=== PATIENT | male | born 1945 | race Caucasian/White ===

== ENCOUNTER 2019-12-31 15:57 | Inpatient (IN) | payer MEDICARE, OTHER ==
[~2019-12-31] VITALS: Ht 152.4 cm; Wt 58.1 kg
[~2019-12-31 15:57] MED LIST: AMLO5TAB4 PO; BACI28.433 TP; BENA20TA9 PO; CITA20TA19 PO; GENT3.5O4 EACHEYE; GLIP10TA11 PO; HYDR30CR77; INSU100I5 SQ; INSU100V30 IJ; METF850T PO; OLOP2.5D12 OP; OMEP20TA20 PO; RISP1TAB7 PO; SENN-175 PO; SITA100T PO; TEMA30CA5 PO; TRAM50TA2 PO; TRIA63AE TP
--- NOTE | 2019-12-31 17:22 | NUR ---
GPS /RN-NOTES DR. TALAMANTES ( PSYCHIATRIST) MADE AWARE OF PATIENT ADMISSION WITH T.O ORDERS TO CONTINUE ALL MEDICATIONS FROM [facility] INCLUDING ATIVAN 1MG P.O Q4HRS. PRN. NOTED AND CARRIED OUT. DR. QUESADA ALSO MADE AWARE WITH T.O ORDER TO CONTINUE ALL MEDICATIONS FROM [facility] AND STATED THAT HE WILL COME AND SEE THE PATIENT TONIGHT.
[2019-12-31] MEDS ORDERED: MAG HYDROX/AL HYDROX/SIMETH 30 ML UDC PO PRN (17:30)
[2019-12-31] MEDS ORDERED: LORAZEPAM 0.5 MG TABLET PO PRN (17:30)
[2019-12-31] MEDS ORDERED: DEXTROSE 50%-WATER 50 ML DISP.SYRIN IV PRN (17:30)
[2019-12-31] MEDS ORDERED: TEMAZEPAM 7.5 MG CAPSULE PO PRN (17:30)
[2019-12-31] MEDS ORDERED: BLOOD SUGAR DIAGNOSTIC 1 EACH STRIP IN ONE (17:30)
[2019-12-31] MEDS ORDERED: ACETAMINOPHEN 325 MG TABLET PO PRN (17:30)
[2019-12-31] MEDS ORDERED: MAGNESIUM HYDROXIDE 30 ML UDC PO PRN (17:30)
[2019-12-31] MEDS: INSULIN REGULAR, HUMAN 100 UNIT/ML 3 ML VIAL SQ PRN (18:23)
[2019-12-31] MEDS: BLOOD SUGAR DIAGNOSTIC 1 EACH STRIP VI SCH ×2 (18:24→21:48)
--- NOTE | 2019-12-31 19:29 | NUR ---
GPS/RN-NOTES ADMITTED 74 Y.O FRISIAN MALE PATIENT FROM [facility]. PATIENT ON 14 DAY HOLD FOR GD ADULT. UPON FACE TO FACE ASSESSMENT PATIENT ALERT ORIENTED X3 ,CALM AND COOPERATIVE ANSWER ALL QUESTIONS. HOLD WAS REVIEWED WITH THE PATIENT, PATIENT'S RIGHT WAS REVIEWED AND GIVEN TO HIM. CONTRABAND AND FULL BODY ASSESSMENT DONE. DR. TALAMANTES( PSYCHIATRIST) MADE AWARE WITH ORDERS ALSO DR. QUESADA ( STAFF REGISTERED NURSE ) AWARE AND STATED HE WILL COME SEE THE PATIENT TONIGHT. PATIENT WAS ORIENTED IN THE UNIT AND UNIT POLICIES. CALLED AZEEM SMART AT [phone] AND LEFT A VOICE MSG. PATIENT AMBULATORY USING WALKER.PATIENT WAS COOPERATIVE DURING ADMISSION PROCESS. WILL ENDORSE TO INCOMING SHIFT FOR ADMISSION PROCESS AND CONTINUITY OF CARE .
[2019-12-31 20:15] VITALS: BP 140/76
[2019-12-31] MEDS ORDERED: TRAMADOL HCL 50 MG TABLET PO PRN (20:30)
[2019-12-31] MEDS: *INSULIN REGULAR(HUMULIN R)HUM 100 UNIT/ML VIAL SQ PRN (21:52)
[2019-12-31] MEDS: SIMVASTATIN 10 MG TABLET PO SCH (21:55)
[2019-12-31] MEDS ORDERED: risperiDONE 1 MG TABLET PO SCH (22:00)
[2019-12-31] MEDS ORDERED: CITALOPRAM HYDROBROMIDE 20 MG TABLET PO SCH (22:00)
[2020-01-01 06:46] LABS: BASOPHILS % (AUTO) 0.5 % (0.0-2.0); EOSINOPHILS % (AUTO) 3.6 % (0.0-6.0); HEMATOCRIT 32 % (39-51); LYMPHOCYTES # (AUTO) 1.3 /CMM (0.8-4.8); LYMPHOCYTES % (AUTO) 21.4 % (20.0-44.0); MEAN CORPUSCULAR HGB CONC 31 g/dl (31.0-36.0); MEAN CORPUSCULAR VOLUME 69 fL (80-96); MONOCYTES # (AUTO) 0.4 /CMM (0.1-1.30); MONOCYTES % (AUTO) 6.2 % (2.0-12.0); NEUTROPHILS # (AUTO) 4.3 /CMM (1.8-8.9); NEUTROPHILS % (AUTO) 68.3 % (43.0-81.0); PLATELET COUNT (AUTO) 394 /CMM (150-450); RED BLOOD CELL COUNT(AUTO) 4.67 MIL/uL (4.5-6.0); WHITE BLOOD COUNT (AUTO) 6.3 K/uL (4.3-11.0)
[2020-01-01 07:01] LABS: ALBUMIN 3.2 g/dL (3.4-5.0); BILIRUBIN,TOTAL 0.3 mg/dL (0.2-1.0); CREATININE 0.8 mg/dL (0.6-1.3); POTASSIUM 4.4 mmol/L (3.5-5.1); TOTAL PROTEIN, SERUM 7.5 g/dL (6.4-8.2)
[2020-01-01 07:22] LABS: C-REACTIVE PROTEIN 0.2 mg/dL (0.0-0.9); FREE PSA 1.08 ng/mL (0.00-45); PROSTATE SPECIFIC ANTIGEN SCR 9.2 ng/mL (0.00-4.00)
[2020-01-01] MEDS ORDERED: GABA-534 PO (07:35)
[2020-01-01] MEDS ORDERED: [UNRECOGNIZED DRUG - CODE] PO (07:35)
[2020-01-01] MEDS ORDERED: HC A30CR11 RC (07:35)
[2020-01-01] MEDS ORDERED: RISP3TAB14 PO (07:35)
[2020-01-01] MEDS ORDERED: HYDR28.32 TP (07:35)
[2020-01-01] MEDS ORDERED: DOCU-141 PO (07:35)
[2020-01-01] MEDS ORDERED: DICY10CA37 PO (07:35)
[2020-01-01] MEDS ORDERED: HYDR30CR79 RC (07:35)
[2020-01-01] MEDS ORDERED: METF-835 PO (07:36)
[2020-01-01] MEDS: INSULIN REGULAR, HUMAN 100 UNIT/ML 3 ML VIAL SQ PRN ×2 (07:39→11:46)
[2020-01-01] MEDS: BLOOD SUGAR DIAGNOSTIC 1 EACH STRIP VI SCH ×4 (07:41→21:53)
[2020-01-01 08:00] VITALS: BP 111/61
[2020-01-01] MEDS: GABAPENTIN 300 MG CAPSULE PO SCH ×2 (08:49→16:56)
[2020-01-01] MEDS: METFORMIN 500 MG TABLET PO SCH ×2 (08:49→16:56)
[2020-01-01] MEDS: DOCUSATE SODIUM 100 MG CAPSULE PO SCH ×2 (08:49→16:56)
[2020-01-01] MEDS: BENAZEPRIL HCL 10 MG TABLET PO SCH (08:49)
[2020-01-01] MEDS: glipiZIDE 10 MG TABLET PO SCH ×2 (08:49→16:56)
[2020-01-01] MEDS: PANTOPRAZOLE 40 MG TABLET.DR PO SCH (08:50)
[2020-01-01] MEDS: LINAGLIPTIN 5 MG TABLET PO SCH (08:50)
[2020-01-01] MEDS: AMLODIPINE BESYLATE 2.5 MG TABLET PO SCH ×2 (08:50→16:53)
--- NOTE | 2020-01-01 09:26 | NUR ---
Family Contact: SW called the pts daughter, Mira ([phone]), and left a voicemail stating that the SW would like to speak to her regarding the pts treatment plan and initial discharge plan.
--- NOTE | 2020-01-01 09:27 | NUR ---
Facility Contact: SW called [facility] ([phone]) and spoke to Minda who stated that the pt can be discharged back to their facility once he is discharged from the hospital.
--- NOTE | 2020-01-01 10:39 | NUR ---
Initial Discharge Plan: Pt currently resides at [facility] located at [address] [place] [address], [address], [place] [address]; ([phone]). Per pt, he would like to return to his home. SW will work with the pt and the MD regarding appropriate discharge planning. SW will form a safe and proper discharge.
[2020-01-01] MEDS: risperiDONE 1 MG TABLET PO SCH ×2 (13:48→21:48)
[2020-01-01 16:00] VITALS: BP 100/62
--- NOTE | 2020-01-01 17:15 | NUR ---
gps plastics engineering teacher: notes bs check=59, re check=65. no s/s of hypo/hyperglycemia reactions noted. orange juice given. dinner served.
--- NOTE | 2020-01-01 18:00 | NUR ---
gps it operations manager: md visit seen and examined by dr. petersen.
[2020-01-01 20:00] VITALS: BP 123/71
--- NOTE | 2020-01-01 20:55 | NUR ---
GPS OPENING NOTES: PATIENT AWAKE, ALERT AN ORIENTED X 2-3, CALM, COOPERATIVE, PACING, DENIES SI/HI, DENIES AH/VH, NO SOB, NO ACUTE DISTRESS, BREATHING EVEN AND UNLABORED, NO S/S OF PAIN AND DISCOMFORT, WILL CONTINUE TO MONITOR Q15 MINS FOR SAFETY
[2020-01-01] MEDS: SIMVASTATIN 10 MG TABLET PO SCH (21:49)
[2020-01-01] MEDS: *INSULIN REGULAR(HUMULIN R)HUM 100 UNIT/ML VIAL SQ PRN (22:00)
[2020-01-02] MEDS: TEMAZEPAM 7.5 MG CAPSULE PO PRN ×2 (02:20→22:23)
[2020-01-02] MEDS ORDERED: glipiZIDE 10 MG TABLET PO SCH (07:30)
[2020-01-02 08:00] VITALS: BP 119/68
[2020-01-02] MEDS: BLOOD SUGAR DIAGNOSTIC 1 EACH STRIP VI SCH ×4 (08:34→21:23)
[2020-01-02] MEDS: BENAZEPRIL HCL 10 MG TABLET PO SCH (09:00)
[2020-01-02] MEDS: AMLODIPINE BESYLATE 2.5 MG TABLET PO SCH ×2 (09:00→17:00)
[2020-01-02] MEDS: INSULIN REGULAR, HUMAN 100 UNIT/ML 3 ML VIAL SQ PRN ×2 (09:36→11:56)
[2020-01-02] MEDS: PANTOPRAZOLE 40 MG TABLET.DR PO SCH (09:44)
[2020-01-02] MEDS: DOCUSATE SODIUM 100 MG CAPSULE PO SCH ×2 (09:44→17:32)
[2020-01-02] MEDS: risperiDONE 1 MG TABLET PO SCH ×2 (09:45→21:23)
[2020-01-02] MEDS: METFORMIN 500 MG TABLET PO SCH ×2 (09:45→17:00)
[2020-01-02] MEDS: GABAPENTIN 300 MG CAPSULE PO SCH ×2 (09:45→17:33)
[2020-01-02] MEDS: LINAGLIPTIN 5 MG TABLET PO SCH (11:53)
[2020-01-02 16:00] VITALS: BP 118/70
--- NOTE | 2020-01-02 16:20 | NUR ---
UA SENT PER ORDERS.
--- NOTE | 2020-01-02 16:50 | NUR ---
RN CHECKING BGL AND FIND SUGAR IS 45.PT. AWAKE AND ALERT,SLIGHTLY SLUGGISH.IMMEDIATELY GIVEN 4 OZ ORANGE JUICE WITH 3 PKTS. SUGAR.PT. IN DINING RM.BEING MONITORED CLOSELY.
--- NOTE | 2020-01-02 17:23 | NUR ---
RECHECK OF BLOOD SUGAR AND NOW 14O. PT. EATING DINNER.SEEMS MORE ALERT.CALL OUT TO DR. Ofelia QUESADA WITH FINDINGS.
--- NOTE | 2020-01-02 17:29 | NUR ---
RETURN CALL FROM DR. QUESADA WITH ORDERS TO DC GLUCOTROL.SPEECH LANGUAGE THERAPIST AWARE OF ALL INFO AND PT. STATUS.REVIEW OF ALL HYPOGLYCEMICS WITH DR. QUESADA.
[2020-01-02] MEDS: FERROUS SULFATE (325 MG) 325 MG/TAB TABLET PO SCH (17:33)
[2020-01-02 17:36] LABS: APPEARANCE,URINE CLEAR (CLEAR); BILIRUBIN,URINE NEGATIVE (NEGATIVE); BLOOD, URINE NEGATIVE Ery/uL (NEGATIVE); COLOR,URINE YELLOW (YELLOW); KETONES,URINE NEGATIVE (NEGATIVE); LEUKOCYTE ESTERASE ,URINE NEGATIVE (NEGATIVE); NITRITE, URINE NEGATIVE (NEGATIVE); PROTEIN,URINE NEGATIVE (NEGATIVE); UGLUCOSE 100 MG/DL mg/dL (NEGATIVE); UROBILINOGEN,URINE 0.2 EU/dL (0.2)
[2020-01-02 20:10] VITALS: BP 135/78
[2020-01-02] MEDS: SIMVASTATIN 10 MG TABLET PO SCH (21:23)
[2020-01-02] MEDS: *INSULIN REGULAR(HUMULIN R)HUM 100 UNIT/ML VIAL SQ PRN (21:25)
[2020-01-03] MEDS: BLOOD SUGAR DIAGNOSTIC 1 EACH STRIP VI SCH ×4 (07:18→21:49)
[2020-01-03 08:00] VITALS: BP 159/78
[2020-01-03] MEDS: INSULIN REGULAR, HUMAN 100 UNIT/ML 3 ML VIAL SQ PRN ×2 (08:02→11:19)
[2020-01-03] MEDS: LINAGLIPTIN 5 MG TABLET PO SCH (08:21)
[2020-01-03] MEDS: FERROUS SULFATE (325 MG) 325 MG/TAB TABLET PO SCH ×2 (08:21→16:12)
[2020-01-03] MEDS: GABAPENTIN 300 MG CAPSULE PO SCH ×2 (08:21→16:12)
[2020-01-03] MEDS: PANTOPRAZOLE 40 MG TABLET.DR PO SCH (08:21)
[2020-01-03] MEDS: METFORMIN 500 MG TABLET PO SCH ×2 (08:22→16:12)
[2020-01-03] MEDS: risperiDONE 1 MG TABLET PO SCH ×2 (08:22→21:49)
[2020-01-03] MEDS: DOCUSATE SODIUM 100 MG CAPSULE PO SCH ×2 (08:22→16:12)
[2020-01-03] MEDS: AMLODIPINE BESYLATE 2.5 MG TABLET PO SCH ×2 (08:23→16:12)
[2020-01-03] MEDS: BENAZEPRIL HCL 10 MG TABLET PO SCH (08:24)
[2020-01-03 08:43] LABS: OCCULT BLOOD STOOL NEGATIVE (NEGATIVE)
--- NOTE | 2020-01-03 09:45 | NUR ---
GPS RN NOTE: PATIENT AWAKE, AMBULATORY WITH WALKER ALERT AN ORIENTED X 2-3, CALM, COOPERATIVE, PACING, DENIES SI/HI, DENIES AH/VH, NO SOB, NO ACUTE DISTRESS, BREATHING EVEN AND UNLABORED, NO S/S OF PAIN AND DISCOMFORT, WILL CONTINUE TO MONITOR Q15 MINS FOR SAFETY
[2020-01-03 16:00] VITALS: BP 133/59
[2020-01-03] MEDS: glipiZIDE 5 MG TABLET PO SCH (16:35)
[2020-01-03 20:28] VITALS: BP 111/60
[2020-01-03] MEDS: TEMAZEPAM 7.5 MG CAPSULE PO PRN (21:49)
[2020-01-03] MEDS: SIMVASTATIN 10 MG TABLET PO SCH (21:49)
[2020-01-03] MEDS: *INSULIN REGULAR(HUMULIN R)HUM 100 UNIT/ML VIAL SQ PRN (21:53)
[2020-01-04] MEDS: BLOOD SUGAR DIAGNOSTIC 1 EACH STRIP VI SCH ×4 (07:26→21:16)
[2020-01-04] MEDS: INSULIN REGULAR, HUMAN 100 UNIT/ML 3 ML VIAL SQ PRN ×2 (07:27→12:01)
[2020-01-04 08:00] VITALS: BP 152/83
[2020-01-04] MEDS: risperiDONE 1 MG TABLET PO SCH ×2 (08:22→21:16)
[2020-01-04] MEDS: DOCUSATE SODIUM 100 MG CAPSULE PO SCH ×2 (08:22→17:00)
[2020-01-04] MEDS: FERROUS SULFATE (325 MG) 325 MG/TAB TABLET PO SCH ×2 (08:22→17:00)
[2020-01-04] MEDS: glipiZIDE 5 MG TABLET PO SCH ×2 (08:22→17:00)
[2020-01-04] MEDS: LINAGLIPTIN 5 MG TABLET PO SCH (08:22)
[2020-01-04] MEDS: GABAPENTIN 300 MG CAPSULE PO SCH ×2 (08:22→17:00)
[2020-01-04] MEDS: BENAZEPRIL HCL 10 MG TABLET PO SCH (08:22)
[2020-01-04] MEDS: AMLODIPINE BESYLATE 2.5 MG TABLET PO SCH ×2 (08:23→17:00)
[2020-01-04] MEDS: PANTOPRAZOLE 40 MG TABLET.DR PO SCH (08:23)
[2020-01-04] MEDS: METFORMIN 500 MG TABLET PO SCH ×2 (09:31→17:00)
--- NOTE | 2020-01-04 10:53 | NUR ---
Probable Cause (PC) Hearing: SW called the pts daughter, Mira ([phone]), and left a voicemail stating that the pt will be having a hearing and explained what that entails.
--- NOTE | 2020-01-04 15:02 | NUR ---
SNF Referral: SW faxed a referral to [facility] [place] with attn to Roseline to the fax number: [phone].
[2020-01-04 16:00] VITALS: BP 139/64
--- NOTE | 2020-01-04 19:25 | NUR ---
RN OPENING NOTES: RECEIVED PT IN BED AND IS ASLEEP AT THIS TIME. WALKER NOTED AT BEDSIDE. BED KEPT IN LOW, LOCKED POSITION, AND SIDE RAILS X2UP. BED ALARM ACTIVATED WELL. NO SOB NOTED. NO S/S OF DISTRESS.
[2020-01-04 20:11] VITALS: BP 169/79
[2020-01-04] MEDS: *INSULIN REGULAR(HUMULIN R)HUM 100 UNIT/ML VIAL SQ PRN (21:14)
--- NOTE | 2020-01-04 21:15 | NUR ---
RN NOTES: BLOOD SUGAR THIS PM WAS 241. 4 UNITS OF INSULIN WAS ADMINISTERED. SNACK PROVIDED. PT ALSO REQUESTING FOR PILL TO SLEEP. WILL CONTINUE TO MONITOR.
[2020-01-04] MEDS: SIMVASTATIN 10 MG TABLET PO SCH (21:16)
[2020-01-04] MEDS: TEMAZEPAM 7.5 MG CAPSULE PO PRN (21:27)
--- NOTE | 2020-01-04 21:28 | NUR ---
RN NOTES: PT REQUESTED "SOMETHING FOR SLEEP." PT GIVEN RESTORIL 15MG PO ORDERED. WILL CONTINUE TO MONITOR. PT IN BED.
[2020-01-05 03:14] VITALS: BP 147/73
--- NOTE | 2020-01-05 07:19 | NUR ---
RN CLOSING NOTES: ENDORSED TO AM NURSE FOR FAM. PT SITTING DOWN WITH WALKER NEAR TELEPHONE IN THE BACK. NO SOB NOTED. NO S/S OF DISTRESS.
[2020-01-05] MEDS: BLOOD SUGAR DIAGNOSTIC 1 EACH STRIP VI SCH ×4 (07:25→21:01)
[2020-01-05] MEDS: INSULIN REGULAR, HUMAN 100 UNIT/ML 3 ML VIAL SQ PRN ×2 (07:31→12:06)
[2020-01-05] MEDS: PANTOPRAZOLE 40 MG TABLET.DR PO SCH (07:53)
[2020-01-05] MEDS: glipiZIDE 5 MG TABLET PO SCH ×2 (07:53→17:16)
[2020-01-05 08:00] VITALS: BP 150/70
[2020-01-05] MEDS: METFORMIN 500 MG TABLET PO SCH ×2 (08:00→17:19)
[2020-01-05] MEDS: GABAPENTIN 300 MG CAPSULE PO SCH ×2 (08:00→17:16)
[2020-01-05] MEDS: risperiDONE 1 MG TABLET PO SCH ×2 (08:00→21:02)
[2020-01-05] MEDS: BENAZEPRIL HCL 10 MG TABLET PO SCH (08:01)
[2020-01-05] MEDS: FERROUS SULFATE (325 MG) 325 MG/TAB TABLET PO SCH ×2 (08:02→17:17)
[2020-01-05] MEDS: DOCUSATE SODIUM 100 MG CAPSULE PO SCH ×2 (08:02→17:16)
[2020-01-05] MEDS: LINAGLIPTIN 5 MG TABLET PO SCH (08:02)
[2020-01-05] MEDS: AMLODIPINE BESYLATE 2.5 MG TABLET PO SCH ×2 (08:02→17:17)
[2020-01-05 16:00] VITALS: BP 124/65
--- NOTE | 2020-01-05 16:08 | NUR ---
Group Note: SW encouraged pt to attend group therapy on 01/05/20 at 2pm discussing reality testing regarding their admission. Pt was asleep in his room and stated that he did not want to participate or talk to anyone at this time.
--- NOTE | 2020-01-05 17:15 | NUR ---
RN NOTE: ACCUCHECK 134. NO INSULIN COVERAGE.
[2020-01-05 20:20] VITALS: BP 127/73
[2020-01-05] MEDS: SIMVASTATIN 10 MG TABLET PO SCH (21:02)
[2020-01-05] MEDS: *INSULIN REGULAR(HUMULIN R)HUM 100 UNIT/ML VIAL SQ PRN (21:10)
--- NOTE | 2020-01-05 21:24 | NUR ---
RN NOTES HS ACCUCHECK BG 173. ADMINISTERED 3UN OF INSULIN PER SLIDING SCALE. PROVIDED OJ AT BEDSIDE.
[2020-01-05] MEDS: TEMAZEPAM 7.5 MG CAPSULE PO PRN (21:45)
[2020-01-05 22:00] VITALS: BP 127/73
[2020-01-06] MEDS: PANTOPRAZOLE 40 MG TABLET.DR PO SCH (06:50)
[2020-01-06 07:43] LABS: BASOPHILS % (AUTO) 0.6 % (0.0-2.0); EOSINOPHILS % (AUTO) 4.3 % (0.0-6.0); HEMATOCRIT 33 % (39-51); HEMOGLOBIN 10.3 g/dL (13.5-17.5); LYMPHOCYTES # (AUTO) 2.3 /CMM (0.8-4.8); LYMPHOCYTES % (AUTO) 26.4 % (20.0-44.0); MEAN CORPUSCULAR HGB CONC 31 g/dl (31.0-36.0); MEAN CORPUSCULAR VOLUME 69 fL (80-96); MONOCYTES # (AUTO) 0.6 /CMM (0.1-1.30); MONOCYTES % (AUTO) 6.5 % (2.0-12.0); NEUTROPHILS # (AUTO) 5.4 /CMM (1.8-8.9); NEUTROPHILS % (AUTO) 62.2 % (43.0-81.0); PLATELET COUNT (AUTO) 396 /CMM (150-450); RED BLOOD CELL COUNT(AUTO) 4.78 MIL/uL (4.5-6.0); WHITE BLOOD COUNT (AUTO) 8.7 K/uL (4.3-11.0)
[2020-01-06 07:59] LABS: CALCIUM, SERUM 9.1 mg/dL (8.5-10.1); CREATININE 0.7 mg/dL (0.6-1.3); POTASSIUM 4.6 mmol/L (3.5-5.1)
[2020-01-06 08:00] VITALS: BP 148/61
[2020-01-06] MEDS: BLOOD SUGAR DIAGNOSTIC 1 EACH STRIP VI SCH ×4 (08:06→21:18)
[2020-01-06] MEDS: LINAGLIPTIN 5 MG TABLET PO SCH (08:07)
[2020-01-06] MEDS: glipiZIDE 5 MG TABLET PO SCH ×2 (08:07→16:31)
[2020-01-06] MEDS: GABAPENTIN 300 MG CAPSULE PO SCH ×2 (08:07→16:31)
[2020-01-06] MEDS: METFORMIN 500 MG TABLET PO SCH ×2 (08:08→16:31)
[2020-01-06] MEDS: BENAZEPRIL HCL 10 MG TABLET PO SCH (08:08)
[2020-01-06] MEDS: AMLODIPINE BESYLATE 2.5 MG TABLET PO SCH ×2 (08:08→16:31)
[2020-01-06] MEDS: DOCUSATE SODIUM 100 MG CAPSULE PO SCH ×2 (08:08→16:30)
[2020-01-06] MEDS: risperiDONE 1 MG TABLET PO SCH ×2 (08:08→21:14)
[2020-01-06] MEDS: FERROUS SULFATE (325 MG) 325 MG/TAB TABLET PO SCH ×2 (08:08→16:31)
[2020-01-06] MEDS: INSULIN REGULAR, HUMAN 100 UNIT/ML 3 ML VIAL SQ PRN ×3 (08:10→16:38)
--- NOTE | 2020-01-06 11:42 | NUR ---
Family Contact: SW called the pts daughter, Mira ([phone]), and left a voicemail stating that the pt will be discharged to [facility] [place] tomorrow.
--- NOTE | 2020-01-06 15:11 | NUR ---
Group Note: SW encouraged pt to attend group therapy on 01/06/20 at 2pm discussing discharge planning. Pt was present in the activities room and stated that he is going to be discharged the following day to [facility] and that he was excited about going back home soon. Pt then became distracted by the other patients and was unable to focus on the SW.
[2020-01-06 16:00] VITALS: BP 101/57
[2020-01-06 20:00] VITALS: BP 131/73
[2020-01-06] MEDS: SIMVASTATIN 10 MG TABLET PO SCH (21:14)
[2020-01-06] MEDS: *INSULIN REGULAR(HUMULIN R)HUM 100 UNIT/ML VIAL SQ PRN (22:22)
[2020-01-06] MEDS: TEMAZEPAM 7.5 MG CAPSULE PO PRN (23:23)
--- NOTE | 2020-01-06 23:26 | NUR ---
GPS RN NOTES: C/O OF INSOMNIA PT C/O UNABLE TO SLEEP. PT STATED, " NO SLEEP. PILL PLEASE." OFFERED RESTORIL 15 MG PO PRN ORDERED. PT AGREED AND TOLERATED MEDICATION WELL. CONTINUE TO MONITOR.
[2020-01-07] MEDS ORDERED: glipiZIDE 5 MG TABLET PO SCH (07:30)
[2020-01-07] MEDS: BLOOD SUGAR DIAGNOSTIC 1 EACH STRIP VI SCH ×2 (07:40→11:56)
[2020-01-07] MEDS: PANTOPRAZOLE 40 MG TABLET.DR PO SCH (07:56)
[2020-01-07 08:00] VITALS: BP 143/69
[2020-01-07] MEDS: DOCUSATE SODIUM 100 MG CAPSULE PO SCH (08:09)
[2020-01-07] MEDS: GABAPENTIN 300 MG CAPSULE PO SCH (08:09)
[2020-01-07] MEDS: FERROUS SULFATE (325 MG) 325 MG/TAB TABLET PO SCH (08:09)
[2020-01-07] MEDS: LINAGLIPTIN 5 MG TABLET PO SCH (08:09)
[2020-01-07] MEDS: risperiDONE 1 MG TABLET PO SCH (08:09)
[2020-01-07] MEDS: METFORMIN 500 MG TABLET PO SCH (08:09)
[2020-01-07 08:10] VITALS: BP 143/69
[2020-01-07] MEDS: AMLODIPINE BESYLATE 2.5 MG TABLET PO SCH (08:10)
[2020-01-07] MEDS: BENAZEPRIL HCL 10 MG TABLET PO SCH (08:10)
[2020-01-07] MEDS: INSULIN REGULAR, HUMAN 100 UNIT/ML 3 ML VIAL SQ PRN ×2 (08:29→12:04)
--- NOTE | 2020-01-07 14:08 | NUR ---
Discharge Note: Pt was discharged to [facility] (SNF) located at [address], [place] [address], . Pt was transported via [facility] at 3PM. SW called the pts daughter, Mira ([phone]), and left a voicemail and informed her of the discharge. Upon discharge, the pt appeared to be in a euthymic mood and presented with a calm affect. Pt appeared to be oriented x4 (time, self, place and situation). Pt denied both suicidal and homicidal ideation as well as auditory and visual hallucinations. Pt will follow up with psychiatrist, Dr. Smith, located at [address] [place] [address]; and [address] away driver, Dr. Dangelo, located at [address] [place] [address]; .
--- NOTE | 2020-01-07 16:15 | NUR ---
GPS/RN-NOTES [facility] AND DR. QUESADA MADE AWARE AND AGREED OF THE DISCHARGE WITH ORDERS. PATIENT DID NOT VERBALIZE SI/HI,DENIES VISUAL AUDITORY HALLUCINATIONS AT THE TIME OF DISCHARGE. ALL DISCHARGE PAPERS WAS SIGN BY THE PATIENT. REPORT WAS GIVEN TO [facility] RN. TELECOMMUNICATIONS LINESWORKER BY AMBULANCE VIA GURNEY WITH TWO STAFF ASSIST.
== END 2020-01-07 16:15 | DRG 885 ==
LOC: GPS 15:57
PROVIDERS: ADMIT Psychiatry & Neurology Psychiatry; ATTEND Internal Medicine
DX: F20.0 Paranoid schizophrenia (principal); N39.0 Urinary tract infection, site not specified; J98.11 Atelectasis; F29 Unspecified psychosis not due to a substance or known physiological condition; E11.40 Type 2 diabetes mellitus with diabetic neuropathy, unspecified; D50.9 Iron deficiency anemia, unspecified; I10 Essential (primary) hypertension; K59.00 Constipation, unspecified; G89.4 Chronic pain syndrome; E11.649 Type 2 diabetes mellitus with hypoglycemia without coma; E78.5 Hyperlipidemia, unspecified; F17.200 Nicotine dependence, unspecified, uncomplicated; M19.90 Unspecified osteoarthritis, unspecified site; N40.0 Benign prostatic hyperplasia without lower urinary tract symptoms; Z79.899 Other long term (current) drug therapy; Z79.84 Long term (current) use of oral hypoglycemic drugs
CPT/HCPCS: 36415; 80048-TC; 80053-TC; 80061-TC; 81000-TC; 82272-TC; 82378; 82962-TC; 84153-TC; 84154-TC; 85025-TC; 85652-TC; 86140-TC; 87081-TC; 87086-TC; J1815

== ENCOUNTER 2022-12-16 18:52 | Inpatient (IN) | payer MEDICARE, OTHER ==
[~2022-12-16] VITALS: Ht 152.4 cm; Wt 62.7 kg
[~2022-12-16 18:52] MED LIST changes: -BACI28.433 TP; -CITA20TA19 PO; +DICY10CA37 PO; +DOCU-141 PO; +GABA-534 PO; -GENT3.5O4 EACHEYE; +HC A30CR11 RC; +HYDR28.32 TP; -HYDR30CR77; +HYDR30CR79 RC; -INSU100I5 SQ; -INSU100V30 IJ; +METF-867 PO; -METF850T PO; -OLOP2.5D12 OP; -RISP1TAB7 PO; -SENN-175 PO; -TRAM50TA2 PO; -TRIA63AE TP
[2022-12-16 21:20] VITALS: BP 143/77
[2022-12-16] MEDS ORDERED: ONDANSETRON HCL/PF 4 MG/2 ML VIAL IVP PRN (21:30)
[2022-12-16] MEDS ORDERED: MORPHINE SULFATE INJ 2 MG/ML DISP.SYRIN IV PRN (21:30)
[2022-12-16] MEDS ORDERED: CEFTRIAXONE 1 G in IV D5W 50 ML IV SCH (22:00)
[2022-12-16] MEDS: BLOOD SUGAR DIAGNOSTIC 1 EACH STRIP VI SCH (22:00)
[2022-12-16] MEDS ORDERED: AZITHROMYCIN 500 MG in IV D5W 250 ML IV SCH (22:00)
[2022-12-16] MEDS ORDERED: DEXTROSE 50%-WATER 50 ML DISP.SYRIN IV PRN (22:00)
[2022-12-16] MEDS ORDERED: METRONIDAZOLE 500MG/ NS 100ML 500 MG in PREMIX 1 EA IV SCH ×2 (22:00→23:16)
--- NOTE | 2022-12-16 22:00 | NUR ---
tele hot stick man initial notes Got a direct admit from [facility]. A male pt Thai speaking agustin with simple Cymraes , confused, poor historian, and hard off hearing. DX of Colitis, PNA, and hypo glycemia. Oriented where at and how to used the call light system. no N/V noted. patient had IVF D%NS infusing at this time on his left AC patent and intact. complaining of abdominal pain and feels urgency to have bowel movement , noticed having small amount of liquid brown color came out with urine also at the same time.Noticed multiple bruise on his right upper arm Skin warm and dry to touch. Not in any acute distress noted. kept him warm and comfortable at all times. cleaned him and put him back to bed. Bed in low and lock in position with side rails x3 applied with bed alarm on for pt comfort and safety. Tele applied to his chest wall Sinus Rhythm heart rate [address] call light at reach.
[2022-12-16] MEDS: MIRTAZAPINE 15 MG TABLET PO SCH (22:27)
[2022-12-16] MEDS: TAMSULOSIN 0.4 MG CAP.SR.24H PO SCH (22:27)
[2022-12-16] MEDS: OLANZAPINE 10 MG TABLET PO SCH (22:27)
[2022-12-16] MEDS ORDERED: AZITHROMYCIN 500 MG VIAL ONE (23:09)
--- NOTE | 2022-12-16 23:15 | NUR ---
tele special needs nanny notes blood sugar checked 178, pt refused insulin . no signs of hypo glycemia noted at this time. will continue monitoring.
[2022-12-16] MEDS ORDERED: METRONIDAZOLE 500MG/ NS 100ML 100 ML IV ONE (23:29)
[2022-12-16] MEDS: ACETAMINOPHEN 325 MG TABLET PO PRN (23:54)
[2022-12-16] MEDS: DICYCLOMINE HCL 10 MG CAPSULE PO SCH (23:54)
--- NOTE | 2022-12-16 23:58 | NUR ---
telel high pressure operator notes Zosyn IVPB hung by nurse Paolo/RN , as ordered. patient so confused needs re-orientation,
[2022-12-17] VITALS: BP 133/76
[2022-12-17] MEDS: AZITHROMYCIN 500 MG in IV D5W 250 ML IV SCH (00:20)
--- NOTE | 2022-12-17 00:30 | NUR ---
tele tankroom tender notes pt so confused, getting out of bed even we told him to stay in bed for his safety. no signs of any discomfort noted. frequent re-orientation needed. Zithromax IVP Bag hung by another nurse as ordered. educate him why he needs antibiotic as well. will continue monitoring. Bed in low and lock in position and side x2 up for pt safety
[2022-12-17 04:00] VITALS: BP 142/60
[2022-12-17 06:03] LABS: HEMATOCRIT 27 % (39-51); HEMOGLOBIN 8.8 g/dL (13.5-17.5); LYMPHOCYTES # (AUTO) 0.9 K/uL (0.8-4.8); LYMPHOCYTES % (AUTO) 12.3 % (20.0-44.0); MEAN CORPUSCULAR HGB CONC 33 g/dl (31.0-36.0); MEAN CORPUSCULAR VOLUME 81 fL (80-96); MONOCYTES # (AUTO) 0.3 K/uL (0.1-1.30); MONOCYTES % (AUTO) 4.1 % (2.0-12.0); NEUTROPHILS % (AUTO) 83.6 % (43.0-81.0); PLATELET COUNT (AUTO) 502 K/uL (150-450); RED BLOOD CELL COUNT(AUTO) 3.34 MIL/uL (4.5-6.0); WHITE BLOOD COUNT (AUTO) 7.2 K/uL (4.3-11.0)
[2022-12-17 06:06] LABS: ALBUMIN 1.9 g/dL (3.4-5.0); BILIRUBIN,TOTAL 0.3 mg/dL (0.2-1.0); CALCIUM, SERUM 8.2 mg/dL (8.5-10.1); CREATININE 0.8 mg/dL (0.6-1.3); MAGNESIUM 1.5 mg/dL (1.8-2.4); PHOSPHORUS 3.5 mg/dL (2.5-4.9); POTASSIUM 3.6 mmol/L (3.5-5.1); TOTAL PROTEIN, SERUM 6.4 g/dL (6.4-8.2)
[2022-12-17] MEDS: DICYCLOMINE HCL 10 MG CAPSULE PO SCH ×4 (06:26→23:22)
[2022-12-17 06:33] LABS: THYROID STIMULATING HORMONE 0.826 uIU/mL (0.358-3.74)
--- NOTE | 2022-12-17 07:19 | NUR ---
ENVIRONMENTAL HEALTH INSPECTOR OPENING NOTE RECEIVED PT IN BED AWAKE AT THIS TIME. A/O X2, COHERENT, ABLE TO MAKE NEEDS KNOWN. ON ROOM AIR, WITH EQUAL AND UNLABORED BREATHING, NO SIGNS OF RESPIRATORY DISTRESS. WITH IV ACCESS ON THE LEFT AC G22, ON SALINE LOCK, PATENT AND INTACT. SAFETY MEASURES IN PLACE: BED LOCKED AND IN LOWEST POSITION, SIDE RAILS UP X2, BED ALARM ON, CALL LIGHT AND TRAY TABLE WITHIN REACH. WILL CONTINUE WITH PLAN OF CARE.
--- NOTE | 2022-12-17 07:21 | NUR ---
tele internist medical doctor md closing notes pt resting now after back and fort,to the restroom even you told him that he needs to used the bedside commode because he's unsteady and not even aware where he at . will continue monitoring. place call light at reach.
[2022-12-17] MEDS ORDERED: PANTOPRAZOLE 40 MG TABLET.DR PO SCH (07:30)
--- NOTE | 2022-12-17 08:30 | NUR ---
MIXING TANK OPERATOR NOTE BS CHECKED AND WAS 33MG/DL. PATIENT IS ALERT AND COHERENT. ASYMPTOMATIC OF HYPOGLYCEMIA. JUICE GIVEN AND D50 GIVEN PER PROTOCOL. BS RECHECKED AND WAS 196MG/DL. WILL CONTINUE WITH PLAN OF CARE.
[2022-12-17] MEDS: BLOOD SUGAR DIAGNOSTIC 1 EACH STRIP VI SCH ×4 (08:34→22:00)
[2022-12-17 09:00] VITALS: BP 110/46
[2022-12-17] MEDS ORDERED: MESALAMINE 400 MG CAP PO SCH (09:00)
[2022-12-17] MEDS: DOCUSATE SODIUM 100 MG CAPSULE PO SCH ×2 (09:00→17:00)
[2022-12-17] MEDS ORDERED: FERR325T23 PO (09:52)
[2022-12-17] MEDS ORDERED: PANT40TA2 PO (09:52)
[2022-12-17] MEDS ORDERED: INSU100V7 SQ (09:52)
[2022-12-17] MEDS ORDERED: ONDA4TAB5 PO (09:52)
[2022-12-17] MEDS ORDERED: ACET-868 PO (09:52)
[2022-12-17] MEDS ORDERED: INSU100V27 SQ (09:52)
[2022-12-17] MEDS ORDERED: RISP0.2515 PO (09:52)
[2022-12-17] MEDS ORDERED: INSU100I14 SQ (09:52)
[2022-12-17] MEDS ORDERED: ASPI-1420 PO (09:52)
[2022-12-17] MEDS ORDERED: TAMS-12 PO (09:52)
[2022-12-17] MEDS ORDERED: MIRT-90 PO (09:52)
[2022-12-17] MEDS: BENAZEPRIL HCL 10 MG TABLET PO SCH (10:09)
[2022-12-17] MEDS: ASPIRIN EC 81 MG TABLET.DR PO SCH (10:10)
[2022-12-17] MEDS: risperiDONE 1 MG TABLET PO SCH ×3 (10:10→18:03)
[2022-12-17] MEDS: PANTOPRAZOLE 40 MG TABLET.DR PO SCH (10:10)
[2022-12-17] MEDS: predniSONE 20 MG TABLET PO SCH (10:13)
[2022-12-17] MEDS: ACETAMINOPHEN 325 MG TABLET PO PRN (10:43)
--- NOTE | 2022-12-17 11:08 | NUR ---
HR REPRESENTATIVE NOTE SEEN BY DR. QUESADA.
[2022-12-17] MEDS: METRONIDAZOLE 500MG/ NS 100ML 500 MG in PREMIX 1 EA IV SCH ×2 (11:53→18:53)
[2022-12-17 12:00] VITALS: BP 156/73
--- NOTE | 2022-12-17 12:30 | NUR ---
COURT TRANSCRIBER NOTE BS CHECKED, LATEST BS 262MG/DL, REFUSED INSULIN AT THIS TIME. HEALTH TEACHING DONE, VERBALIZED UNDERSTANDING. IN STABLE CONDITION.
[2022-12-17] MEDS: MESALAMINE 400 MG CAP PO SCH ×2 (12:55→18:04)
[2022-12-17] MEDS: Magnesium 1GM/D5W 100ML PREMIX 100 ML IV SCH ×2 (13:44→14:53)
--- NOTE | 2022-12-17 15:13 | NUR ---
SHOES SALESPERSON NOTE ABLE TO COLLECT STOOL- MUCOID IN CHARACTER, NOTED 1-[address] QUESADA NOTIFIED OF VISUAL FINDINGS.
[2022-12-17] MEDS: SOD FERRIC GLUC 125 MG in IV NS 0.9% 100 ML IV SCH (15:51)
[2022-12-17 16:00] VITALS: BP 183/58
[2022-12-17 17:35] LABS: OCCULT BLOOD STOOL POSITIVE (NEGATIVE)
[2022-12-17] MEDS: CEFTRIAXONE 1 G in IV D5W 50 ML IV SCH (18:04)
[2022-12-17] MEDS: INSULIN REGULAR, HUMAN 100 UNIT/ML 3 ML VIAL SQ PRN (18:12)
--- NOTE | 2022-12-17 19:00 | NUR ---
SERVICE EMPLOYEE CLOSING NOTE PT IN BED AWAKE AT THIS TIME. A/O X2-3, COHERENT, ABLE TO MAKE NEEDS KNOWN. ON ROOM AIR, WITH EQUAL AND UNLABORED BREATHING, NO SIGNS OF RESPIRATORY DISTRESS. WITH IV ACCESS ON THE RIGHT WRIST G24, ON SALINE LOCK, PATENT AND INTACT. SAFETY MEASURES IN PLACE: BED LOCKED AND IN LOWEST POSITION, SIDE RAILS UP X2, BED ALARM ON, CALL LIGHT AND TRAY TABLE WITHIN REACH. WILL CONTINUE WITH PLAN OF CARE.
--- NOTE | 2022-12-17 19:30 | NUR ---
CLINICAL FIELD SPECIALIST OPENING NOTES RECEIVED PATIENT IN BED AWAKE AT THIS TIME. A/O X2-3. ON ROOM AIR, WITH EQUAL AND UNLABORED BREATHING, NO SIGNS OF RESPIRATORY DISTRESS. WITH IV ACCESS ON THE RIGHT WRIST G24, ON SALINE LOCK, PATENT AND INTACT. SAFETY MEASURES IN PLACE: BED LOCKED AND IN LOWEST POSITION, SIDE RAILS UP X2, BED ALARM ON, CALL LIGHT AND TRAY TABLE WITHIN REACH. WILL CONTINUE WITH PLAN OF CARE.
[2022-12-17 20:00] VITALS: BP 135/70
[2022-12-17] MEDS: MIRTAZAPINE 15 MG TABLET PO SCH (23:20)
[2022-12-17] MEDS: OLANZAPINE 10 MG TABLET PO SCH (23:20)
[2022-12-17] MEDS: TAMSULOSIN 0.4 MG CAP.SR.24H PO SCH (23:21)
[2022-12-18] VITALS: BP 154/64
[2022-12-18] MEDS: AZITHROMYCIN 500 MG in IV D5W 250 ML IV SCH ×2
--- NOTE | 2022-12-18 00:10 | NUR ---
JOSÉ LUIS NOTES AZITHROMYCIN IV NOT GIVEN DUE TO ABSENCE OF IV ACCESS. INFORMED DR. JOVEL. WILL CONTINUE TO MONITOR PATIENT. Addendum: 12/18/22 at 0431 by KENTON SHEN RN TIME IS 0230
[2022-12-18] MEDS: METRONIDAZOLE 500MG/ NS 100ML 500 MG in PREMIX 1 EA IV SCH ×3 (01:48→15:48)
--- NOTE | 2022-12-18 01:50 | NUR ---
RN NOTES ICU NURSE INSERTED EJ TO THE PATIENT. TRIED TO INSERT PERIPHERAL IV BUT FAILED. INFORMED DR. JOVEL.
--- NOTE | 2022-12-18 02:20 | NUR ---
RN NOTES PATIENT REMOVED EJ. STOPPED FLAGYL IV. INFORMED DR. JOVEL. WILL ORDER FOR MIDLINE.
--- NOTE | 2022-12-18 05:00 | NUR ---
RN NOTES PATIENT'S BS LEVEL IS 20. GAVE APPLE AND ORANGE JUICE WITH SUGAR. NO IV ACCESS. WILL CONTINUE TO MONITOR.
--- NOTE | 2022-12-18 05:48 | NUR ---
RN NOTES PATIENT BS LEVEL WENT UP TO 56. WILL CONTINUE TO MONITOR PATIENT.
[2022-12-18] MEDS: DICYCLOMINE HCL 10 MG CAPSULE PO SCH ×3 (06:00→17:11)
[2022-12-18] MEDS: BLOOD SUGAR DIAGNOSTIC 1 EACH STRIP VI SCH ×4 (07:01→22:00)
--- NOTE | 2022-12-18 07:03 | NUR ---
RN NOTES PATIENT'S BS LEVEL IS 139. WILL NOT GIVE INSULIN FOR NOW. WILL CONTINUE TO MONITOR PATIENT.
--- NOTE | 2022-12-18 07:53 | NUR ---
SALES REPRESENTATIVE ADDING MACHINES CLOSING NOTES PATIENT IN BED AWAKE AT THIS TIME. A/O X2-3. PATIENT WAS COMBATIVE DURING THE SHIFT. ON ROOM AIR, WITH EQUAL AND UNLABORED BREATHING, NO SIGNS OF RESPIRATORY DISTRESS. NO IV ACCESS, PATIENT KEEP ON REMOVING IV. NO TELE MONITOR, PATIENT KEEPS REMOVING THE MONITOR TOO. SAFETY MEASURES IN PLACE: BED LOCKED AND IN LOWEST POSITION, SIDE RAILS UP X2, BED ALARM ON, CALL LIGHT AND TRAY TABLE WITHIN REACH. WILL ENDORSE TO THE NEXT SHIFT.
[2022-12-18 08:00] VITALS: BP 141/74
[2022-12-18] MEDS: DOCUSATE SODIUM 100 MG CAPSULE PO SCH ×2 (09:00→17:00)
[2022-12-18] MEDS: ASPIRIN EC 81 MG TABLET.DR PO SCH (09:30)
[2022-12-18] MEDS: MESALAMINE 400 MG CAP PO SCH ×3 (09:30→17:11)
[2022-12-18] MEDS: predniSONE 20 MG TABLET PO SCH (09:31)
[2022-12-18] MEDS: risperiDONE 1 MG TABLET PO SCH ×3 (09:32→17:11)
[2022-12-18] MEDS: PANTOPRAZOLE 40 MG TABLET.DR PO SCH (09:32)
[2022-12-18] MEDS: BENAZEPRIL HCL 10 MG TABLET PO SCH (09:32)
[2022-12-18 09:47] LABS: BASOPHILS % (AUTO) 0.1 % (0.0-2.0); EOSINOPHILS % (AUTO) 0.1 % (0.0-6.0); HEMATOCRIT 33 % (39-51); HEMOGLOBIN 10.5 g/dL (13.5-17.5); LYMPHOCYTES # (AUTO) 1.2 K/uL (0.8-4.8); LYMPHOCYTES % (AUTO) 16.7 % (20.0-44.0); MEAN CORPUSCULAR HGB CONC 32 g/dl (31.0-36.0); MEAN CORPUSCULAR VOLUME 82 fL (80-96); MONOCYTES # (AUTO) 0.8 K/uL (0.1-1.30); MONOCYTES % (AUTO) 10.3 % (2.0-12.0); NEUTROPHILS # (AUTO) 5.4 K/uL (1.8-8.9); NEUTROPHILS % (AUTO) 72.8 % (43.0-81.0); PLATELET COUNT (AUTO) 623 K/uL (150-450); RED BLOOD CELL COUNT(AUTO) 3.97 MIL/uL (4.5-6.0); WHITE BLOOD COUNT (AUTO) 7.5 K/uL (4.3-11.0)
[2022-12-18 10:04] LABS: ALBUMIN 2.2 g/dL (3.4-5.0); BILIRUBIN,TOTAL 0.2 mg/dL (0.2-1.0); CALCIUM, SERUM 8.4 mg/dL (8.5-10.1); POTASSIUM 3.8 mmol/L (3.5-5.1); TOTAL PROTEIN, SERUM 6.9 g/dL (6.4-8.2)
--- NOTE | 2022-12-18 11:37 | NUR ---
BLOWING ENGINEER NOTES PT SEEN AND EXAMINED BY DR. QUESADA, PLAN OF CARE DISCUSSED WITH PT, PER DR. QUESADA, OK FOR MIDLINE IF NEEDED.
[2022-12-18] MEDS: INSULIN REGULAR, HUMAN 100 UNIT/ML 3 ML VIAL SQ PRN (12:19)
[2022-12-18] MEDS ORDERED: Sodium Chloride 154 MEQ in IV 10% DEXTROSE 1,000 ML IV SCH (13:00)
[2022-12-18] MEDS: CEFTRIAXONE 1 G in IV D5W 50 ML IV SCH (14:30)
[2022-12-18 16:00] VITALS: BP 135/74
[2022-12-18] MEDS: SOD FERRIC GLUC 125 MG in IV NS 0.9% 100 ML IV SCH (16:55)
--- NOTE | 2022-12-18 18:12 | NUR ---
DIRECTOR OF SPORTS MEDICINE NOTES PT IN BED, AWAKE, ALERT AND ORIENTED, DENIES PAIN, NOT IN DISTRESS, CALL LIGHT WITHIN REACH, BED ALARM ON AT ALL TIMES, IV FLUIDS INFUSING, PT WITH EPISODES OF DIARRHEA, STOOL SAMPLE SENT TO LAB FOR STOOL STUDIES, AMBULATES WITH SLOW AND STEADY GAIT, TOLERATES CURRENT DIET, ALL NEEDS ATTENDED.
--- NOTE | 2022-12-18 19:30 | NUR ---
FACT CHECKER OPENING NOTES RECEIVED PATIENT IN BED AWAKE AT THIS TIME. A/O X 2-3. ON ROOM AIR, WITH EQUAL AND UNLABORED BREATHING, NO SIGNS OF RESPIRATORY DISTRESS. IV ACCESS ON THE RIGHT FOREARM #22G WITH D10 NS 154 MEQ @ 40ML/HR. SAFETY MEASURES IN PLACE: BED LOCKED AND IN LOWEST POSITION, SIDE RAILS UP X2, BED ALARM ON, CALL LIGHT AND TRAY TABLE WITHIN REACH. WILL CONTINUE WITH THE PLAN OF CARE.
[2022-12-18 20:00] VITALS: BP 147/77
[2022-12-18 20:33] VITALS: BP 147/77
--- NOTE | 2022-12-18 21:10 | NUR ---
RN NOTES PATIENT IS RESTLESS. WENT OUT OF THE ROOM AND VERBALIZED "HE'S GOING TO THE LINE IN THE IMMIGRATION". MORPHINE IV GIVEN PRN. WILL CONTINUE TO MONITOR PATIENT.
--- NOTE | 2022-12-18 22:30 | NUR ---
RN NOTES PATIENT GOING IN AND OUT OF THE BED. PATIENT IS RESTLESS AND TRYING TO PULL OUT HIS IV ACCESS. ORDERED ACUTE MEDICAL RESTRAINT. WILL CONTINUE TO MONITOR PATIENT.
[2022-12-18] MEDS: *INSULIN REGULAR(HUMULIN R)HUM 100 UNIT/ML VIAL SQ PRN (23:53)
--- NOTE | 2022-12-18 23:57 | NUR ---
RN NOTES PATIENT'S BS LEVEL IS 492. GAVE 10 UNITS OF REGULAR INSULIN. WILL NOTIFY THE DOCTOR. WILL RECHECK THE SUGAR LEVEL AND CONTINUE TO MONITOR.
[2022-12-19] VITALS (8 sets, daily range): BP systolic 120–155; BP diastolic 59–73
[2022-12-19] MEDS: MIRTAZAPINE 15 MG TABLET PO SCH ×2 (00:04→22:33)
[2022-12-19] MEDS: TAMSULOSIN 0.4 MG CAP.SR.24H PO SCH ×2 (00:04→22:33)
[2022-12-19] MEDS: OLANZAPINE 10 MG TABLET PO SCH ×2 (00:04→22:33)
[2022-12-19] MEDS: DICYCLOMINE HCL 10 MG CAPSULE PO SCH ×4 (00:04→17:12)
[2022-12-19] MEDS: METRONIDAZOLE 500MG/ NS 100ML 500 MG in PREMIX 1 EA IV SCH ×3 (00:10→16:39)
[2022-12-19] MEDS: AZITHROMYCIN 500 MG in IV D5W 250 ML IV SCH ×2 (01:49→23:35)
--- NOTE | 2022-12-19 04:56 | NUR ---
RN NOTES PATIENT WAS ABLE TO PULL OUT THE IV AGAIN. REFUSED TO HAVE A NEW ONE. WILL CONTINUE TO MONITOR PATIENT.
--- NOTE | 2022-12-19 05:10 | NUR ---
RN NOTES MIDLINE INSERTION ORDERED FOR THE PATIENT. NURSING RACE RELATIONS ADVISER INFORMED.
[2022-12-19 06:53] LABS: EOSINOPHILS % (AUTO) 0.6 % (0.0-6.0); HEMATOCRIT 33 % (39-51); HEMOGLOBIN 10.8 g/dL (13.5-17.5); LYMPHOCYTES # (AUTO) 1.8 K/uL (0.8-4.8); LYMPHOCYTES % (AUTO) 25.8 % (20.0-44.0); MEAN CORPUSCULAR HGB CONC 32 g/dl (31.0-36.0); MEAN CORPUSCULAR VOLUME 82 fL (80-96); MONOCYTES # (AUTO) 0.8 K/uL (0.1-1.30); MONOCYTES % (AUTO) 11.3 % (2.0-12.0); NEUTROPHILS # (AUTO) 4.2 K/uL (1.8-8.9); NEUTROPHILS % (AUTO) 62.3 % (43.0-81.0); PLATELET COUNT (AUTO) 579 K/uL (150-450); RED BLOOD CELL COUNT(AUTO) 4.05 MIL/uL (4.5-6.0); WHITE BLOOD COUNT (AUTO) 6.8 K/uL (4.3-11.0)
[2022-12-19] MEDS: PANTOPRAZOLE 40 MG TABLET.DR PO SCH (06:56)
[2022-12-19] MEDS: BLOOD SUGAR DIAGNOSTIC 1 EACH STRIP VI SCH ×4 (06:57→22:33)
[2022-12-19 07:22] LABS: CALCIUM, SERUM 8.9 mg/dL (8.5-10.1); CARBON DIOXIDE 23 mmol/L (21-32); CHLORIDE 100 mmol/L (98-107); CREATININE 1.1 mg/dL (0.6-1.3); GLUCOSE 130 mg/dL (74-106); SODIUM SERUM 136 mmol/L (136-145); UREA NITROGEN, BLOOD 6 mg/dL (7-18)
--- NOTE | 2022-12-19 07:27 | NUR ---
RAW MILL OPERATOR CLOSING NOTES PATIENT IN BED AWAKE AND ALERT AT THIS TIME. A/O X 2-3. UPPER SORBIAN SPEAKING ONLY. ON ROOM AIR, WITH EQUAL AND UNLABORED BREATHING, NO SIGNS OF RESPIRATORY DISTRESS. NO IV ACCESS AND TELE MONITOR AT THIS TIME, PATIENT REMOVED. MIDLINE INSERTION ORDERED, NURSING CUSTOMER ASSISTANT INFORMED. PATIENT ON BILATERAL SOFT WRIST RESTRAINT DUE TO RESTLESSNESS. PATIENT WAS GOING IN AND OUT OF THE BED DURING EARLIER SHIFT. SAFETY MEASURES MAINTAINED. BED LOCKED AND IN LOWEST POSITION, SIDE RAILS UP X2, BED ALARM ON, CALL LIGHT AND TRAY TABLE WITHIN REACH. WILL ENDORSE TO THE NEXT SHIFT.
--- NOTE | 2022-12-19 07:30 | NUR ---
VIDEO GAME PRODUCER NOTES PT AWAKE AND ALERT, WITH PERIODS OF CONFUSION, AMBULATES TO THE BATHROOM WITH STEADY GAIT, NO COMPLAINT OF PAIN, NOT IN DISTRESS, CALL LIGHT WITHIN REACH, BED ALARM ON, NEEDS ATTENDED.
[2022-12-19] MEDS: DOCUSATE SODIUM 100 MG CAPSULE PO SCH ×2 (08:17→17:00)
[2022-12-19] MEDS: risperiDONE 1 MG TABLET PO SCH ×3 (08:26→17:07)
[2022-12-19] MEDS: predniSONE 20 MG TABLET PO SCH (08:26)
[2022-12-19] MEDS: BENAZEPRIL HCL 10 MG TABLET PO SCH (08:26)
[2022-12-19] MEDS: MESALAMINE 400 MG CAP PO SCH ×3 (08:27→17:07)
--- NOTE | 2022-12-19 10:15 | NUR ---
RN MS NOTES PT SEEN AND EXAMINED BY DR. QUESADA, PT IN BED, AWAKE, ABLE TO MAKE NEEDS KNOWN, PT HAD EPISODES OF WALKING ALONG THE HALLWAY, UNABLE TO FOLLOW DIRECTIONS, WITH CONFUSION, MADE AWARE, PT NOW LYING IN BED, CALM AT THIS TIME.
[2022-12-19] MEDS ORDERED: LORAZEPAM 1 MG TABLET PO PRN (10:30)
[2022-12-19] MEDS: INSULIN REGULAR, HUMAN 100 UNIT/ML 3 ML VIAL SQ PRN ×2 (11:46→17:10)
[2022-12-19] MEDS: Sodium Chloride 154 MEQ in IV 10% DEXTROSE 1,000 ML IV SCH (14:21)
[2022-12-19] MEDS: SOD FERRIC GLUC 125 MG in IV NS 0.9% 100 ML IV SCH (14:23)
[2022-12-19] MEDS: CEFTRIAXONE 1 G in IV D5W 50 ML IV SCH (16:07)
[2022-12-19] MEDS: HYDROCODONE/APAP 5/325MG TABLET PO PRN (20:38)
[2022-12-19] MEDS: *INSULIN REGULAR(HUMULIN R)HUM 100 UNIT/ML VIAL SQ PRN (22:36)
[2022-12-19] MEDS ORDERED: Sodium Chloride 154 MEQ in IV 10% DEXTROSE 1,000 ML IV SCH (23:59)
[2022-12-20] MEDS: DICYCLOMINE HCL 10 MG CAPSULE PO SCH ×4 (00:10→17:22)
[2022-12-20] MEDS: METRONIDAZOLE 500MG/ NS 100ML 500 MG in PREMIX 1 EA IV SCH ×3 (00:11→17:02)
[2022-12-20] MEDS: HYDROCODONE/APAP 5/325MG TABLET PO PRN (02:31)
[2022-12-20] MEDS: PANTOPRAZOLE 40 MG TABLET.DR PO SCH (06:39)
[2022-12-20 06:53] LABS: BASOPHILS % (AUTO) 0.1 % (0.0-2.0); EOSINOPHILS % (AUTO) 1.8 % (0.0-6.0); HEMATOCRIT 30 % (39-51); HEMOGLOBIN 9.3 g/dL (13.5-17.5); LYMPHOCYTES # (AUTO) 1.9 K/uL (0.8-4.8); LYMPHOCYTES % (AUTO) 24.6 % (20.0-44.0); MEAN CORPUSCULAR HGB CONC 31 g/dl (31.0-36.0); MEAN CORPUSCULAR VOLUME 84 fL (80-96); MONOCYTES # (AUTO) 0.7 K/uL (0.1-1.30); MONOCYTES % (AUTO) 9.4 % (2.0-12.0); NEUTROPHILS # (AUTO) 4.9 K/uL (1.8-8.9); NEUTROPHILS % (AUTO) 64.1 % (43.0-81.0); PLATELET COUNT (AUTO) 481 K/uL (150-450); RED BLOOD CELL COUNT(AUTO) 3.62 MIL/uL (4.5-6.0); WHITE BLOOD COUNT (AUTO) 7.6 K/uL (4.3-11.0)
[2022-12-20 07:00] VITALS: BP 143/79
[2022-12-20] MEDS: BLOOD SUGAR DIAGNOSTIC 1 EACH STRIP VI SCH ×4 (07:06→22:57)
[2022-12-20] MEDS: *INSULIN REGULAR(HUMULIN R)HUM 100 UNIT/ML VIAL SQ PRN (07:09)
[2022-12-20 07:24] LABS: CALCIUM, SERUM 8.3 mg/dL (8.5-10.1); CARBON DIOXIDE 26 mmol/L (21-32); CHLORIDE 99 mmol/L (98-107); GLUCOSE 333 mg/dL (74-106); MAGNESIUM 2.1 mg/dL (1.8-2.4); POTASSIUM 4.2 mmol/L (3.5-5.1); SODIUM SERUM 131 mmol/L (136-145); UREA NITROGEN, BLOOD 8 mg/dL (7-18)
--- NOTE | 2022-12-20 07:30 | NUR ---
RM OPENING NOTE- PATIENT IN BED AWAKE AND ALERT AT THIS TIME. A/O X 2-3. ROMANIAN SPEAKING ONLY. CONFUSED AT TIMES. NO IV ACCESS AND TELE MONITOR AT THIS TIME, GEOVANNY KHAN #18G, SAFETY MEASURES MAINTAINED. BED LOCKED AND IN LOWEST POSITION, SIDE RAILS UP X2, BED ALARM ON, CALL LIGHT AND TRAY TABLE WITHIN REACH. MONITOR / ASSIST
[2022-12-20] MEDS: predniSONE 20 MG TABLET PO SCH (08:52)
[2022-12-20] MEDS: risperiDONE 1 MG TABLET PO SCH ×3 (08:52→17:23)
[2022-12-20] MEDS: BENAZEPRIL HCL 10 MG TABLET PO SCH (08:52)
[2022-12-20] MEDS: DOCUSATE SODIUM 100 MG CAPSULE PO SCH ×2 (08:52→17:23)
[2022-12-20] MEDS: MESALAMINE 400 MG CAP PO SCH ×3 (08:55→17:25)
[2022-12-20] MEDS: INSULIN REGULAR, HUMAN 100 UNIT/ML 3 ML VIAL SQ PRN ×3 (12:03→23:04)
[2022-12-20] MEDS: SOD FERRIC GLUC 125 MG in IV NS 0.9% 100 ML IV SCH (14:40)
[2022-12-20] MEDS: Sodium Chloride 154 MEQ in IV 10% DEXTROSE 1,000 ML IV SCH (15:16)
[2022-12-20] MEDS: CEFTRIAXONE 1 G in IV D5W 50 ML IV SCH (15:58)
[2022-12-20 16:00] VITALS: BP 148/61
[2022-12-20] MEDS ORDERED: GABAPENTIN 300 MG CAPSULE PO SCH (17:00)
--- NOTE | 2022-12-20 18:32 | NUR ---
RN CLOSING NOTE- PATIENT IN BED A/O X 2-3. GREENLANDIC SPEAKING ONLY. CONFUSED AT TIMES., GEOVANNY ML #18G, SAFETY MEASURES MAINTAINED. BED LOCKED AND IN LOWEST POSITION, SIDE RAILS UP X2, BED ALARM ON, CALL LIGHT AND TRAY TABLE WITHIN REACH. FOR POSS DC TOMORROW. MONITOR / ASSIST
--- NOTE | 2022-12-20 19:00 | NUR ---
RN OPENING NOTES PT IS ASLEEP IN BED. A/O X 2-3, ICELANDIC SPEAKING. PT IN RA, TOLERATING WELL, BREATHING EVEN AND UNLABORED @ THIS TIME. PT IV ACCESS PRESENT @ GEOVANNY ML #18G, PATENT, INTACT AND FLUSHES WELL, WITH NO S/S OF INFILTRATION @ SITE NOTED. SAFETY MEASURES IN PLACE, BED AT ITS LOWEST AND LOCKED POSITION, SIDE RAILS X 3, BEDSIDE TABLE AND CALL LIGHT IS EASY REACH. BED ALARM IS ON. WILL CONTIINUE TO MONITOR PATIENT ACCORDINGLY.
[2022-12-20 20:20] VITALS: BP 148/52
[2022-12-20] MEDS: MIRTAZAPINE 15 MG TABLET PO SCH (21:48)
[2022-12-20] MEDS: TAMSULOSIN 0.4 MG CAP.SR.24H PO SCH (21:48)
[2022-12-20] MEDS: OLANZAPINE 10 MG TABLET PO SCH (21:48)
[2022-12-21] MEDS: METRONIDAZOLE 500MG/ NS 100ML 500 MG in PREMIX 1 EA IV SCH ×3 (00:02→16:57)
[2022-12-21] MEDS: AZITHROMYCIN 500 MG in IV D5W 250 ML IV SCH (01:34)
[2022-12-21] MEDS: BLOOD SUGAR DIAGNOSTIC 1 EACH STRIP VI SCH ×4 (06:13→22:01)
[2022-12-21] MEDS: INSULIN REGULAR, HUMAN 100 UNIT/ML 3 ML VIAL SQ PRN ×3 (06:15→16:57)
--- NOTE | 2022-12-21 06:19 | NUR ---
RN CLOSING NOTES PT IS DOZING INTERMITTENLY IN BED A/O X 2-3, THAI SPEAKING. PT IN RA, TOLERATING WELL, BREATHING EVEN AND UNLABORED @ THIS TIME. PT IV ACCESS PRESENT @ GEOVANNY ML #18G, PATENT, INTACT AND FLUSHES WELL, WITH NO S/S OF INFILTRATION @ SITE NOTED. PT WALKS INDEPENDENLY TO GO TO THE BATHROOM. MEDICATION ADMINISTERED PER MD'S ORDER. SAFETY MEASURES IN PLACE, BED AT ITS LOWEST AND LOCKED POSITION, SIDE RAILS X 3, BEDSIDE TABLE AND CALL LIGHT IS EASY REACH. BED ALARM IS ON. WILL CONTIINUE TO MONITOR PATIENT ACCORDINGLY.
[2022-12-21] MEDS: PANTOPRAZOLE 40 MG TABLET.DR PO SCH ×2 (06:41→07:30)
[2022-12-21] MEDS: DICYCLOMINE HCL 10 MG CAPSULE PO SCH ×4 (06:41→17:05)
[2022-12-21 07:00] VITALS: BP 158/71
[2022-12-21] MEDS ORDERED: ACETAMINOPHEN 325 MG TABLET PO PRN (07:00)
--- NOTE | 2022-12-21 07:05 | NUR ---
MS RN OPENING NOTES RECEIVED PATIENT SLEEPING IN BED, ENGLISH SPEAKING A/Ox1-2, EPISODES OF CONFUSION. ON ROOM AIR, NO S/S OF RESPIRATORY DISTRESS OF DISCOMFORT. PATIENT IV ACCESS GEOVANNY ML S/L. INTACT AND PATENT. PATIENT AMBULATORY, HAS BATHROOM PRIVILEGE. PATIENT HAS BILATERAL SOFT WRIST RESTRAINTS AT BEDSIDE BUT NO LONGER USING PATIENT IS MORE COMPLIANT WITH CARE. SAFETY MEASURES IN PLACE: BED LOCKED AND IN LOWEST POSITION, HOB ELEVATED, SIDE RAILS UPx2, CALL LIGHT WITHIN REACH. WILL CONTINUE TO MONITOR.
[2022-12-21] MEDS: BENAZEPRIL HCL 10 MG TABLET PO SCH (08:27)
[2022-12-21] MEDS: GABAPENTIN 300 MG CAPSULE PO SCH ×2 (08:27→17:04)
[2022-12-21] MEDS: risperiDONE 1 MG TABLET PO SCH ×3 (08:27→17:05)
[2022-12-21] MEDS: predniSONE 20 MG TABLET PO SCH (08:28)
[2022-12-21] MEDS: AMLODIPINE BESYLATE 5 MG TABLET PO SCH (08:28)
[2022-12-21] MEDS: DOCUSATE SODIUM 100 MG CAPSULE PO SCH ×2 (08:28→17:05)
[2022-12-21] MEDS: MESALAMINE 400 MG CAP PO SCH ×3 (08:37→16:57)
--- NOTE | 2022-12-21 08:40 | NUR ---
RN NOTES PATIENT RECEIVED PROTONIX MEDICATION ALREADY FROM ONCOLOGY TECHNICIAN. NON-ADMIN PER PHARMACIST
[2022-12-21] MEDS ORDERED: AMLODIPINE BESYLATE 2.5 MG TABLET PO SCH (09:00)
[2022-12-21] MEDS ORDERED: DICYCLOMINE HCL 10 MG CAPSULE PO SCH (09:00)
[2022-12-21] MEDS ORDERED: risperiDONE 0.25 MG TABLET PO SCH (09:00)
[2022-12-21 09:30] LABS: CALCIUM, SERUM 8.6 mg/dL (8.5-10.1); POTASSIUM 3.6 mmol/L (3.5-5.1)
[2022-12-21 11:37] LABS: BASOPHILS % (AUTO) 0.2 % (0.0-2.0); EOSINOPHILS % (AUTO) 1.7 % (0.0-6.0); HEMATOCRIT 32 % (39-51); HEMOGLOBIN 10.6 g/dL (13.5-17.5); LYMPHOCYTES # (AUTO) 2.3 K/uL (0.8-4.8); LYMPHOCYTES % (AUTO) 16.2 % (20.0-44.0); MEAN CORPUSCULAR HGB CONC 33 g/dl (31.0-36.0); MEAN CORPUSCULAR VOLUME 83 fL (80-96); MONOCYTES # (AUTO) 0.6 K/uL (0.1-1.30); MONOCYTES % (AUTO) 3.9 % (2.0-12.0); PLATELET COUNT (AUTO) 689 K/uL (150-450); RED BLOOD CELL COUNT(AUTO) 3.89 MIL/uL (4.5-6.0); WHITE BLOOD COUNT (AUTO) 14.1 K/uL (4.3-11.0)
[2022-12-21] MEDS ORDERED: INSULIN GLARGINE, 100 UNIT/ML CARTRIDGE SQ SCH ×2 (12:30→22:00)
--- NOTE | 2022-12-21 12:30 | NUR ---
RN NOTES PATIENT BS HIGH 495, MD NOTIFIED. COVERAGE GIVEN PER SLIDING SCALE AND ORDERED LANTUS 14 UNITS QD. WILL CONTINUE TO MONITOR.
[2022-12-21 13:01] LABS: BAND % (MANUAL) 3 % (0.0-5.0); EOSINOPHILS % (MANUAL) 1 % (0-4); LYMPHOCYTES % (MANUAL) 17 % (16-48); MONOCYTES % (MANUAL) 2 % (0-11.0); NEUTROPHILS % (MANUAL) 77 (42-76)
[2022-12-21] MEDS: SOD FERRIC GLUC 125 MG in IV NS 0.9% 100 ML IV SCH (14:39)
[2022-12-21] MEDS: CEFTRIAXONE 1 G in IV D5W 50 ML IV SCH (15:46)
[2022-12-21 16:00] VITALS: BP 113/59
--- NOTE | 2022-12-21 17:15 | NUR ---
RN NOTES PATIENT BS HIGH 500, NOTIFIED, NO NEW ORDER, ADMINISTERED 15 UNITS PER SLIDING SCALE.
--- NOTE | 2022-12-21 18:45 | NUR ---
MS RN CLOSING NOTES PATIENT SLEEPING IN BED, FRISIAN SPEAKING A/Ox1-2, EPISODES OF CONFUSION. STABLE ON ROOM AIR, NO S/S OF RESPIRATORY DISTRESS OF DISCOMFORT. PATIENT IV ACCESS GEOVANNY ML S/L. INTACT AND PATENT. PATIENT AMBULATORY, HAS BATHROOM PRIVILEGE. PATIENT HAS BILATERAL SOFT WRIST RESTRAINTS AT BEDSIDE BUT NO LONGER USING PATIENT IS MORE COMPLIANT WITH CARE. SAFETY MEASURES MAINTAINED: BED LOCKED AND IN LOWEST POSITION, HOB ELEVATED, SIDE RAILS UPx2, CALL LIGHT WITHIN REACH. WILL ENDORSE TO NEXT SHIFT ANY FAM.
--- NOTE | 2022-12-21 19:30 | NUR ---
MS RN OPENING NOTES - RECEIVED PATIENT SLEEPING IN BED, EASY TO AROUSE. A/O X2, WITH PERIODS OF CONFUSION. ABLE TO SPEAK SOME LITHUANIAN. BREATHING EVEN AND NON-LABORED ON ROOM AIR. NOT IN ACUTE DISTRESS. NO C/O PAIN OR DISCOMFORT AT THIS TIME. HAS RIGHT UPPER ARM MIDLINE #18G AND SALINE LOCKED. NO S/S OF INFILTRATION NOTED. SAFETY MEASURES IN PLACE: BED LOCKED AND IN LOW POSITION, SIDE RAILS UP X2, BED ALARM ON, CALL LIGHT WITHIN REACH. WILL CONTINUE PLAN OF CARE.
[2022-12-21 20:00] VITALS: BP 121/59
[2022-12-21] MEDS: OLANZAPINE 10 MG TABLET PO SCH (21:55)
[2022-12-21] MEDS ORDERED: TAMSULOSIN 0.4 MG CAP.SR.24H PO SCH (22:00)
[2022-12-21] MEDS ORDERED: MIRTAZAPINE 15 MG TABLET PO SCH (22:00)
[2022-12-21] MEDS: *INSULIN REGULAR(HUMULIN R)HUM 100 UNIT/ML VIAL SQ PRN (22:05)
[2022-12-22] MEDS: METRONIDAZOLE 500MG/ NS 100ML 500 MG in PREMIX 1 EA IV SCH ×2 (00:24→08:20)
[2022-12-22] MEDS: DICYCLOMINE HCL 10 MG CAPSULE PO SCH ×3 (00:25→12:24)
[2022-12-22 06:25] LABS: BASOPHILS % (AUTO) 0.1 % (0.0-2.0); EOSINOPHILS % (AUTO) 1.2 % (0.0-6.0); HEMATOCRIT 31 % (39-51); HEMOGLOBIN 9.9 g/dL (13.5-17.5); LYMPHOCYTES # (AUTO) 3.2 K/uL (0.8-4.8); LYMPHOCYTES % (AUTO) 20.5 % (20.0-44.0); MEAN CORPUSCULAR HGB CONC 32 g/dl (31.0-36.0); MEAN CORPUSCULAR VOLUME 82 fL (80-96); MONOCYTES % (AUTO) 6.2 % (2.0-12.0); NEUTROPHILS # (AUTO) 11.4 K/uL (1.8-8.9); PLATELET COUNT (AUTO) 666 K/uL (150-450); RED BLOOD CELL COUNT(AUTO) 3.77 MIL/uL (4.5-6.0); WHITE BLOOD COUNT (AUTO) 15.8 K/uL (4.3-11.0)
[2022-12-22] MEDS: INSULIN REGULAR, HUMAN 100 UNIT/ML 3 ML VIAL SQ PRN ×2 (06:32→11:47)
[2022-12-22] MEDS: BLOOD SUGAR DIAGNOSTIC 1 EACH STRIP VI SCH ×2 (06:32→11:46)
--- NOTE | 2022-12-22 06:45 | NUR ---
MS RN CLOSING NOTES - PATIENT SLEPT WELL. NO ACUTE DISTRESS THROUGHOUT THE NIGHT. ABLE TO VERBALIZE NEEDS. AMBULATORY WITH BRP. NO SOB OR NOTED, TOLERATING ROOM AIR WELL. DENIES PAIN AT THIS TIME. AFEBRILE. RIGHT UPPER ARM MIDLINE #18G INTACT, PATENT AND FLUSHING. ALL DUE MEDS GIVEN AND NEEDS ATTENDED. SAFETY MEASURES MAINTAINED. WILL ENDORSE TO NEXT SHIFT FOR FAM.
[2022-12-22 07:19] LABS: ALBUMIN 2.1 g/dL (3.4-5.0); BILIRUBIN,TOTAL 0.2 mg/dL (0.2-1.0); CALCIUM, SERUM 8.9 mg/dL (8.5-10.1); CREATININE 0.9 mg/dL (0.6-1.3); POTASSIUM 3.5 mmol/L (3.5-5.1); TOTAL PROTEIN, SERUM 6.3 g/dL (6.4-8.2)
--- NOTE | 2022-12-22 07:54 | NUR ---
MS RN OPENING NOTE Patient in bed, awake. A/O x 2, confused at times. On room air, breathing evenly and unlabored. No SOB or s/s or distress noted. IV access on GEOVANNY midline SL, intact and patent. Safety precautions in place: bed in low, locked position; siderails up x 2; call light within reach. Will continue to monitor.
[2022-12-22 08:00] VITALS: BP 155/68
[2022-12-22] MEDS: DOCUSATE SODIUM 100 MG CAPSULE PO SCH (08:20)
[2022-12-22] MEDS: BENAZEPRIL HCL 10 MG TABLET PO SCH (08:20)
[2022-12-22] MEDS: PANTOPRAZOLE 40 MG TABLET.DR PO SCH (08:20)
[2022-12-22 08:21] VITALS: BP 153/68
[2022-12-22] MEDS: predniSONE 20 MG TABLET PO SCH (08:21)
[2022-12-22] MEDS: GABAPENTIN 300 MG CAPSULE PO SCH (08:21)
[2022-12-22] MEDS: risperiDONE 1 MG TABLET PO SCH ×2 (08:21→12:24)
[2022-12-22] MEDS: MESALAMINE 400 MG CAP PO SCH ×2 (08:21→12:25)
[2022-12-22] MEDS: AMLODIPINE BESYLATE 5 MG TABLET PO SCH (08:21)
[2022-12-22] MEDS: CEFTRIAXONE 1 G in IV D5W 50 ML IV SCH (15:10)
--- NOTE | 2022-12-22 15:30 | NUR ---
RN NOTE Called [facility] to give report. No answer. Will try again later.
--- NOTE | 2022-12-22 16:30 | NUR ---
RN NOTE Received order for discharge. Patient is A/O x 2, confused at times. Stable on room air, breathing evenly and unlabored. No SOB or s/s of distress noted. Report given to JOSÉ LUIS Carrillo of [facility]. IV access removed, pressure dressing applied. Exitcare given to EMT. Patient left in stable condition via ambulance with 2 assistant professor of art.
[2022-12-22 19:47] LABS: BAND % (MANUAL) 6 % (0.0-5.0); EOSINOPHILS % (MANUAL) 4 % (0-4); LYMPHOCYTES % (MANUAL) 16 % (16-48); MONOCYTES % (MANUAL) 2 % (0-11.0); NEUTROPHILS % (MANUAL) 72 (42-76)
== END 2022-12-22 16:30 | DRG 385 ==
LOC: TELE 21:15 → MED 12-19 12:38
PROVIDERS: ADMIT Internal Medicine; ATTEND Internal Medicine
PROC: 05HD33Z Insertion of Infusion Device into Right Cephalic Vein, Percutaneous Approach (ICD-10-PCS; principal; 2022-12-19)
DX: K51.911 Ulcerative colitis, unspecified with rectal bleeding (principal); G93.41 Metabolic encephalopathy; E44.1 Mild protein-calorie malnutrition; F03.93 Unspecified dementia, unspecified severity, with mood disturbance; Z79.82 Long term (current) use of aspirin; D50.9 Iron deficiency anemia, unspecified; E11.649 Type 2 diabetes mellitus with hypoglycemia without coma; Z20.822 Contact with and (suspected) exposure to COVID-19; E11.40 Type 2 diabetes mellitus with diabetic neuropathy, unspecified; E11.65 Type 2 diabetes mellitus with hyperglycemia; E78.5 Hyperlipidemia, unspecified; M19.90 Unspecified osteoarthritis, unspecified site; K64.9 Unspecified hemorrhoids; N40.1 Benign prostatic hyperplasia with lower urinary tract symptoms; R33.8 Other retention of urine; D50.0 Iron deficiency anemia secondary to blood loss (chronic); J44.9 Chronic obstructive pulmonary disease, unspecified; Z79.84 Long term (current) use of oral hypoglycemic drugs; Z79.899 Other long term (current) drug therapy; Z91.14 Patient's other noncompliance with medication regimen; F20.9 Schizophrenia, unspecified; G47.00 Insomnia, unspecified; F32.A Depression, unspecified; Z79.4 Long term (current) use of insulin; Z87.891 Personal history of nicotine dependence; T38.0X5A Adverse effect of glucocorticoids and synthetic analogues, initial encounter; Y92.129 Unspecified place in nursing home as the place of occurrence of the external cause; D75.839 Thrombocytosis, unspecified; D72.829 Elevated white blood cell count, unspecified
CPT/HCPCS: 36410; 36415; 71045-TC; 80048-TC; 80053-TC; 80061-TC; 82272-TC; 82962-TC; 83735-TC; 84100-TC; 84443-TC; 85025-TC; 85652-TC; 86140-TC; 87081-TC; A4216; A4223; G0378; J0456; J0696; J1815; J2270; J2916; J3475; J3490; J7030; J7050; J7060